=== PATIENT | male | born 1985 | race African-American/Black ===

== ENCOUNTER 2018-08-24 21:42 | Emergency (ER) | payer OTHER ==
[~2018-08-24] VITALS: Ht 175.3 cm; Wt 131.5 kg
[2018-08-24 21:49] VITALS: BP 129/74
[2018-08-24] MEDS ORDERED: IBUPROFEN 800800 M1 PO (22:04)
== END 2018-08-24 22:12 | disposition home or self-care (01) ==
LOC: ER 21:42
DX: R51 Headache (principal); S30.811A Abrasion of abdominal wall, initial encounter; X58.XXXA Exposure to other specified factors, initial encounter; Y93.89 Activity, other specified; Y92.89 Other specified places as the place of occurrence of the external cause; Y99.8 Other external cause status